=== PATIENT | male | born 1930 | race Caucasian/White ===

== ENCOUNTER 2016-08-25 18:38 | Emergency (ER) | payer OTHER ==
[2016-08-25 19:35] LABS: MANUAL DIFF NEEDED? NO
[2016-08-25 19:38] LABS: BASO% 0.2 % (0.0-0.8); EOS# 0.13 X1000 (0.0-0.7); HEMATOCRIT 46.3 % (42.0-52.0); HEMOGLOBIN 15.4 g/dL (14.0-18.0); IMM GRAN# 0.44 X1000 (0.0-0.04); IMM GRAN% 3.5 % (0.0-0.5); LYMPH# 1.54 X1000 (1.2-3.4); LYMPH% 12.3 % (20.5-51.1); MCH 31.8 PG (27-31); MCHC 33.3 g/dL (33-37); MCV 95.5 FL (81-99); MONO# 1.24 X1000 (0.11-0.59); MONO% 9.9 % (1.7-9.3); MPV 10.2 FL (7.4-10.4); NEUT% 73.1 % (42.2-75.2); PLT 185 X1000 (130-400); RBC 4.85 XMIL (4.7-6.1)
[2016-08-25 19:57] LABS: AGAP 15; ALBUMIN 3.8 g/dL (3.5-5.0); ALKALINE PHOSPHATASE 68 U/L (32-122); BUN 28 mg/dL (8-22); CHLORIDE 99 mmol/L (98-107); CK PROFILE 63 U/L (24-204); COSMO 280; GOT 20 U/L (10-34); GPT 18 U/L (10-44); MAGNESIUM 1.8 mg/dL (1.5-2.7); POTASSIUM 4.2 mmol/L (3.5-5.1); SODIUM 137 mmol/L (136-145); TCO2 23 mmol/L (25-35); TOTAL BILIRUBIN 0.68 mg/dL (0.20-1.00); TOTAL PROTEIN 6.1 g/dL (6.3-8.3)
--- NOTE | 2016-08-25 19:58 | PROVIDER DOCUMENTATION ---
HPI-General Adult - General Source: patient - History of Present Illness -Gen Adult Nature of Presenting Problems: 86 year old M presents to the ED with a cc of fatigue and weakness x2 days. PT states today he was sitting in his recliner and became more weak and dizzy. Location of Pain/Injury: reports: none Pain Radiation: reports: no radiation Quality of Pain: reports: none Severity: reports: mild Onset/Duration: reports: 2 days ago Timing: reports: still present Modifying Factors: improves with: nothing Associated Symptoms: reports: dizziness, fatigue, weakness. denies: chest pain , headaches, sinus congestion/drainage, shortness of breath Similar Symptoms Previously?: No Recently seen or treated by another doctor?: No <Karen Michaels - Last Filed: 08/25/16 19:58> <Miguel Leung - Last Filed: 08/25/16 22:03> - General Chief Complaint: Weakness Stated Complaint: DIZZY Time Seen by Provider: 08/25/16 18:53 Allergies/Adverse Reactions: Patient Allergies Allergy/AdvReac Type Severity Reaction Status Date / Time levofloxacin Allergy Unknown Verified 08/18/15 20:58 Home Medications: Home Medication List Medication Instructions Recorded Confirmed Last Taken Type Carvedilol [Coreg] 6.25 mg PO BID 08/06/14 08/25/16 08/18/15 History Clopidogrel Bisulfate [Plavix] 75 mg PO DIRECTED 08/06/14 08/25/16 08/18/15 History Digoxin 125 mcg PO DAILY 08/06/14 08/25/16 08/18/15 History Furosemide [Lasix] 40 mg PO DAILY 08/06/14 08/25/16 08/18/15 History Isosorbide Mononitrate E.r. [Imdur] 60 mg PO DAILY 08/06/14 08/25/16 08/18/15 History Potassium Chloride E.r. [Klor-Con] 20 meq PO DAILY 08/06/14 08/25/16 10/06/14 History Pravastatin Sodium [Pravachol] 40 mg PO HS 08/06/14 08/25/16 08/17/15 21:00 History Spironolactone 25 mg PO QAM 08/06/14 08/25/16 08/18/15 09:00 History Tamsulosin HCl [Flomax] 0.4 mg PO QAM 08/06/14 08/25/16 08/18/15 09:00 History Tramadol [Ultram] 50 mg PO Q6H PRN PRN 08/06/14 08/25/16 08/18/15 09:00 History Warfarin Sodium 3 mg PO DIRECTED 08/06/14 08/25/16 08/18/15 History Lisinopril [Zestril] 5 mg PO HS 08/18/15 08/25/16 08/17/15 History Pantoprazole [Protonix] 40 mg PO DAILY 08/18/15 08/25/16 08/18/15 History Review of Systems - Adult - REVIEW OF SYSTEMS - ADULT Constitutional: reports: fatique. denies: chills, fever Eyes: reports: no symptoms reported Ears, Nose, Mouth & Throat: reports: no symptoms reported Cardiovascular: denies: chest pain, edema, palpitations Respiratory: denies: cough, shortness of breath Gastrointestinal: denies: abdominal pain, diarrhea, nausea, vomiting Genitourinary: denies: dysuria, hematuria, incontinence Musculoskeletal: reports: muscle weakness. denies: joint pain, muscle aches Integumentary: denies: skin sores/ulcer, skin thickening Neurological: reports: dizziness/vertigo. denies: headache/migraines Psychiatric: reports: no symptoms reported Endocrine: reports: no symptoms reported Hematologic/Lymphatic: reports: no symptoms reported Allergic/Immunologic: reports: no symptoms reported All Other Systems: Reviewed and Negative <Karen Michaels - Last Filed: 08/25/16 19:58> Past History - Adult - PAST MEDICAL HISTORY-ADULT Review of Records: reports: Nursing Assessment Review, Medications Reviewed Major Childhood Illnesses: reports: denies history Cardiovascular: reports: HTN, hyperlipidemia, [place] (1989) Genitourinary: reports: prostate cancer - PRIOR SURGERIES/PROCEDURES Surgical/Procedure History: reports: colonoscopy, CABG, orthopedic (extremity), back/neck - IMMUNIZATION STATUS Childhood Immunizations: See Nurse Assessment Flu Vaccine: See Nurse Assessment - SOCIAL HISTORY Smoking: non-smoker Substance Use: none/never Alcohol Use Frequency: never <Karen Michaels - Last Filed: 08/25/16 19:58> Physical Exam-General - PHYSICAL EXAM-ADULT Initial Vital Signs Reviewed: Yes - CONSTITUTIONAL General Appearance: alert, mild distress. negative: obese, thin, anxious, lethargic, slow to respond, obtunded, combative - EYES Eyes: PERRL/EOMI, pink conjunctivae. negative: conjuctival exudate, scleral icterus, subconjunctival hemorrhage - HEAD, EARS, NOSE, MOUTH & THROAT HENMT: normocephalic/atraumatic, moist mucous membranes, normal ENT inspection. negative: angioedema, frontal tenderness, maxillary tenderness - NECK Neck: non-tender, full range of motion, supple, normal inspection. negative: lymphadenopathy, trachial deviation, thyromegaly - RESPIRATORY Respiratory: lungs clear, normal breath sounds. negative: crackles, rales, rhonchi, stridor, wheezing - CARDIOVASCULAR Cardiovascular: normal peripheral pulses, regular rate, rhythm, no edema, no JVD , no murmur. negative: extra beats, friction rub, irregularly irregular - CHEST (BREASTS) Chest/Breast: deferred - GASTROINTESTINAL (ABDOMEN) Abdominal Exam: normal bowel sounds, non tender, soft. negative: distended, guarding, rigid, rebound, tenderness, hernia, mass - GENITOURINARY Male Genitalia: deferred Rectal Exam: deferred Hemoccult Exam: deferred - LYMPHATIC Lymphatic: no adenopathy. negative: axilla node tender, cervical node tenderness - MUSCULOSKELETAL Back Exam: normal inspection, no CVA tenderness, no vertebral tenderness. negative: ecchymosis, swelling, vertebral tenderness Extremity: normal range of motion, non-tender, normal gait, normal inspection. negative: deformity, erythema, inflammation, swelling, tenderness Peripheral Pulses: radial (R): 2+, radial (L): 2+ - SKIN Integumentary: normal color, normal turgor, warm/dry. negative: cyanosis, diaphoresis, ecchymosis, erythema, jaundice, mottled, pallor, petechiae, purpura , rash, swelling, tenderness - NEUROLOGIC Neurologic: grossly normal, no motor/sensory deficits. negative: aphasia, facial droop, focal weakness, motor weakness, sensory deficit - PSYCHIATRIC Psych/Mental Status: normal mood/affect, normal thought content, normal thought process, oriented x 3. negative: anxious, paranoid, tearful <Miguel Leung - Last Filed: 08/25/16 22:03> Progress - XRAY 1 XRAY Study: Chest Impression: Normal XRAY Interpretation: NAD: Dr. Ca- CHINED[facility] PHILLIP <Karen Michaels - Last Filed: 08/25/16 19:58> - PLAN OF CARE/RESULTS Progress/Plan/Lab Results: Discussed results and plan of care with Dr. Ca. Dr. Ca at bedside for evaluation. Discussed results and plan of care with patient. Patient agrees with plan and verbalizes understanding. Vital Signs Temp Pulse Pulse Pulse Pulse Resp BP 08/25/16 21:44 70 18 157/78 08/25/16 20:19 74 85 71 08/25/16 18:44 97.7 F 69 16 159/88 BP BP BP Pulse Ox 08/25/16 21:44 95 08/25/16 20:19 126/71 125/61 139/77 08/25/16 18:44 97 levofloxacin Allergy (Verified 08/18/15 20:58) Unknown Carvedilol [Coreg] 6.25 mg PO BID 08/06/14 Clopidogrel Bisulfate [Plavix] 75 mg PO DIRECTED 08/06/14 Digoxin 125 mcg PO DAILY 08/06/14 Furosemide [Lasix] 40 mg PO DAILY 08/06/14 Isosorbide Mononitrate E.r. [Imdur] 60 mg PO DAILY 08/06/14 Potassium Chloride E.r. [Klor-Con] 20 meq PO DAILY 08/06/14 Pravastatin Sodium [Pravachol] 40 mg PO HS 08/06/14 Spironolactone 25 mg PO QAM 08/06/14 Tamsulosin HCl [Flomax] 0.4 mg PO QAM 08/06/14 Tramadol [Ultram] 50 mg PO Q6H PRN PRN 08/06/14 Warfarin Sodium 3 mg PO DIRECTED 08/06/14 Lisinopril [Zestril] 5 mg PO HS 08/18/15 Pantoprazole [Protonix] 40 mg PO DAILY 08/18/15 I&O 08/24/16 08/25/16 08/26/16 06:59 06:59 06:59 Output Total 50 Balance -50 Laboratory 08/25/16 08/25/16 08/25/16 20:57 19:27 19:27 WBC RBC Hgb Hct MCV MCH MCHC RDW Std Deviation Plt Count MPV Immature Gran % (Auto) Neut % (Auto) Lymph % (Auto) [place] % (Auto) Eos % (Auto) Baso % (Auto) Immature Gran # (Auto) Neut # (Auto) Lymph # (Auto) [place] # (Auto) Eos # (Auto) Baso # (Auto) PT 59.1 H INR 5.48 PTT (Actin FS) 40.9 H Sodium Potassium Chloride Carbon Dioxide Anion Gap BUN Creatinine Estimated GFR/1.73 m2 BUN/Creatinine Ratio Glucose Calculated Osmolality Calcium Magnesium Total Bilirubin AST ALT Alkaline Phosphatase Creatine Kinase Troponin T < 0.010 Uzz-P-Eljaczmpigl Pept Total Protein Albumin Globulin Albumin/Globulin Ratio Urine Source CLEAN CATCH Urine Color YELLOW Urine Turbidity HAZY Urine pH 5.0 Ur Specific [place] 1.019 Urine Protein NEGATIVE Ur Glucose (Stick) NEGATIVE Ur Ketones (Stick) NEGATIVE Urine Blood MODERATE A Urine Nitrite NEGATIVE Urine Bilirubin NEGATIVE Urobilinogen Dipstick NORMAL Urine Leukocytes NEGATIVE Urine WBC (Auto) <10 Urine RBC (Auto) TNTC A U Epithel Cells (Auto) <10 Urine Bacteria (Auto) NEGATIVE 08/25/16 08/25/16 08/25/16 19:27 19:27 19:27 WBC 12.53 H RBC 4.85 Hgb 15.4 Hct 46.3 MCV 95.5 MCH 31.8 H MCHC 33.3 RDW Std Deviation 14.9 H Plt Count 185 MPV 10.2 Immature Gran % (Auto) 3.5 H Neut % (Auto) 73.1 Lymph % (Auto) 12.3 L [place] % (Auto) 9.9 H Eos % (Auto) 1.0 Baso % (Auto) 0.2 Immature Gran # (Auto) 0.44 H Neut # (Auto) 9.15 H Lymph # (Auto) 1.54 [place] # (Auto) 1.24 H Eos # (Auto) 0.13 Baso # (Auto) 0.03 PT INR PTT (Actin FS) Sodium 137 Potassium 4.2 Chloride 99 Carbon Dioxide 23 L Anion Gap 15 BUN 28 H Creatinine 1.1 Estimated GFR/1.73 m2 > 60 BUN/Creatinine Ratio 25 Glucose 106 H Calculated Osmolality 280 Calcium 9.0 Magnesium 1.8 Total Bilirubin 0.68 AST 20 ALT 18 Alkaline Phosphatase 68 Creatine Kinase 63 Troponin T Afx-W-Edmxkazgfvw Pept 592 H Total Protein 6.1 L Albumin 3.8 Globulin 2.3 Albumin/Globulin Ratio 1.7 Urine Source Urine Color Urine Turbidity Urine pH Ur Specific [place] Urine Protein Ur Glucose (Stick) Ur Ketones (Stick) Urine Blood Urine Nitrite Urine Bilirubin Urobilinogen Dipstick Urine Leukocytes Urine WBC (Auto) Urine RBC (Auto) U Epithel Cells (Auto) Urine Bacteria (Auto) Orders Category Date Time Status Orthostatic Vital Signs NOW Care 08/25/16 19:25 Active Saline Loc NOW Care 08/25/16 19:22 Active CHEST-2 VIEWS [RAD] Stat Exams 08/25/16 19:23 Taken CBC WITH ELECTRONIC DIFF [HEME] Stat Lab 08/25/16 19:27 Completed CK PROFILE [SP CHEM] Stat Lab 08/25/16 19:27 Completed COMPREHENSIVE METABOLIC PANEL [CHEM] Stat Lab 08/25/16 19:27 Completed MAGNESIUM [CHEM] Stat Lab 08/25/16 19:27 Completed PRO B-NATRIURETIC PEPTIDE Stat Lab 08/25/16 19:27 Completed PROTIME WITH INR [COAG] Stat Lab 08/25/16 19:27 Completed PTT [COAG] Stat Lab 08/25/16 19:27 Completed TROPONIN T Stat Lab 08/25/16 19:27 Completed URINALYSIS [URINALYSIS] Stat Lab 08/25/16 20:57 Completed EKG [EKG] Stat Ther 08/25/16 18:47 Ordered Laboratory Tests 08/25/16 08/25/16 08/25/16 19:27 19:27 19:27 WBC 12.53 H RBC 4.85 Hgb 15.4 Hct 46.3 MCV 95.5 MCH 31.8 H MCHC 33.3 RDW Std Deviation 14.9 H Plt Count 185 MPV 10.2 Immature Gran % (Auto) 3.5 H Neut % (Auto) 73.1 Lymph % (Auto) 12.3 L [place] % (Auto) 9.9 H Eos % (Auto) 1.0 Baso % (Auto) 0.2 Immature Gran # (Auto) 0.44 H Neut # (Auto) 9.15 H Lymph # (Auto) 1.54 [place] # (Auto) 1.24 H Eos # (Auto) 0.13 Baso # (Auto) 0.03 PT INR PTT (Actin FS) Sodium 137 Potassium 4.2 Chloride 99 Carbon Dioxide 23 L Anion Gap 15 BUN 28 H Creatinine 1.1 Estimated GFR/1.73 m2 > 60 BUN/Creatinine Ratio 25 Glucose 106 H Calculated Osmolality 280 Calcium 9.0 Magnesium 1.8 Total Bilirubin 0.68 AST 20 ALT 18 Alkaline Phosphatase 68 Creatine Kinase 63 Troponin T Wtd-C-Xnchttcpiuv Pept 592 H Total Protein 6.1 L Albumin 3.8 Globulin 2.3 Albumin/Globulin Ratio 1.7 Urine Source Urine Color Urine Turbidity Urine pH Ur Specific [place] Urine Protein Ur Glucose (Stick) Ur Ketones (Stick) Urine Blood Urine Nitrite Urine Bilirubin Urobilinogen Dipstick Urine Leukocytes Urine WBC (Auto) Urine RBC (Auto) U Epithel Cells (Auto) Urine Bacteria (Auto) 08/25/16 08/25/16 08/25/16 19:27 19:27 20:57 WBC RBC Hgb Hct MCV MCH MCHC RDW Std Deviation Plt Count MPV Immature Gran % (Auto) Neut % (Auto) Lymph % (Auto) [place] % (Auto) Eos % (Auto) Baso % (Auto) Immature Gran # (Auto) Neut # (Auto) Lymph # (Auto) [place] # (Auto) Eos # (Auto) Baso # (Auto) PT 59.1 H INR 5.48 PTT (Actin FS) 40.9 H Sodium Potassium Chloride Carbon Dioxide Anion Gap BUN Creatinine Estimated GFR/1.73 m2 BUN/Creatinine Ratio Glucose Calculated Osmolality Calcium Magnesium Total Bilirubin AST ALT Alkaline Phosphatase Creatine Kinase Troponin T < 0.010 Pgh-Q-Dhyevtmzhls Pept Total Protein Albumin Globulin Albumin/Globulin Ratio Urine Source CLEAN CATCH Urine Color YELLOW Urine Turbidity HAZY Urine pH 5.0 Ur Specific [place] 1.019 Urine Protein NEGATIVE Ur Glucose (Stick) NEGATIVE Ur Ketones (Stick) NEGATIVE Urine Blood MODERATE A Urine Nitrite NEGATIVE Urine Bilirubin NEGATIVE Urobilinogen Dipstick NORMAL Urine Leukocytes NEGATIVE Urine WBC (Auto) <10 Urine RBC (Auto) TNTC A U Epithel Cells (Auto) <10 Urine Bacteria (Auto) NEGATIVE <Miguel Leung - Last Filed: 08/25/16 22:03> Departure <Karen Michaels - Last Filed: 08/25/16 19:58> - Departure Time of Disposition Order: 21:58 Certified Medical Emergency: Emergent <Miguel Leung - Last Filed: 08/25/16 22:03> - Departure DIAGNOSIS: Other fatigue Disposition: HOME 01 Condition: Stable Additional Instructions: Follow up with primary care physician Return to ED for any concerns or worsening of symptoms ED Follow Up Instructions: You have been treated by a care provider in the Emergency Department. These instructions are being provided to you so you can have an understanding of how to care for yourself upon discharge. Upon discharge from the Emergency Department, you are responsible for making arrangements for follow-up care by a physician of your choice. Take all prescribed medications as directed. Return to the Emergency Department immediately for any new or worsening symptoms. You may call the Physician Referral phone number at [phone] to obtain a list of Physicians who are taking new patients. Referrals: Bj Ding MD [Primary Care Provider] - Attestation - Scribe Verification/Attestation Scribe:: Karen Michaels Acting as Scribe for:: Miguel Leung Scribe documention review:: This chart was documented by a scribe and accurately reflects the service the provider performed and the decisions made by the provider. <Karen Michaels - Last Filed: 08/25/16 19:58> - Physician/ IRINEO Attestation Patient care was provided by Advanced Practice Provider:: Yes Advanced Practice Provider:: Miguel Leung Advanced Practice Provider documentation review:: The Mid-level provider documentation, treatment plan and medical decision making was reviewed by the physician who agrees with all treatment and medical decision making by the [facility]. The physician spent face to face time with patient:: Yes <Miguel Leung - Last Filed: 08/25/16 22:03> Physician Attestation - Physician Attestation I, the provider, attest to the following statement:: Miguel Leung Physician documentation Attestation:: This documentation recorded by the scribe accurately reflects the service I personally performed and the decisions made by me. <Karen Michaels - Last Filed: 08/25/16 19:58>
[2016-08-25 20:00] LABS: INR 5.48; PROTIME 59.1 Seconds (9.2-11.7); PTT 40.9 Seconds (22.0-36.0)
[2016-08-25 21:04] LABS: URINE MICRO REVIEW NEEDED? NO; URINE SOURCE CLEAN CATCH
[2016-08-25 21:08] LABS: BILIRUBIN URINE NEGATIVE (NEGATIVE); BLOOD URINE MODERATE (NEGATIVE); COLOR YELLOW; GLUCOSE URINE NEGATIVE (NEGATIVE); LEUKOCYTES URINE NEGATIVE (NEGATIVE); NITRITE URINE NEGATIVE (NEGATIVE); PROTEIN URINE NEGATIVE (NEGATIVE); SP GRAVITY URINE 1.019; TURBIDITY URINE HAZY (CLEAR); UR EPITHELIAL CELLS <10 /HPF (<10); URINE BACTERIA NEGATIVE /HPF; URINE RBC TNTC /HPF (<10); URINE WBC <10 /HPF (<10); UROBILINOGEN URINE NORMAL (NORMAL)
[2016-08-25 21:45] VITALS: BP 157/78
--- NOTE | 2016-08-26 06:03 | EKG Report ---
Test Performed on : 08/25/2016 6:48:22 PM Test Reason : WEAKNESS Blood Pressure : / mmHG Vent. Rate : 069 BPM Atrial Rate : 069 BPM P-R Int : 182 ms QRS Dur : 122 ms QT Int : 388 ms P-R-T Axes : 104 002 004 degrees QTc Int : 415 ms Normal sinus rhythm. 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
--- NOTE | 2016-08-26 08:17 | Diag Imaging Result Document ---
PROCEDURE NAME: CHEST-2 VIEWS - 08/25/2016 TWO VIEWS OF THE CHEST: FINDINGS: There are sternotomy wires. 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 There is cardiomegaly. The inspiration is less optimal than on 08/18/2015, otherwise there has been no significant change. IMPRESSION: Stable chest.
== END 2016-08-25 22:15 | disposition home or self-care (01) ==
LOC: ED 18:38
DX: R53.83 Other fatigue (principal); M62.81 Muscle weakness (generalized); R42 Dizziness and giddiness; I10 Essential (primary) hypertension; E78.5 Hyperlipidemia, unspecified; I25.2 Old myocardial infarction; Z85.46 Personal history of malignant neoplasm of prostate; Z95.1 Presence of aortocoronary bypass graft; Z79.899 Other long term (current) drug therapy; Z79.01 Long term (current) use of anticoagulants; Z79.02 Long term (current) use of antithrombotics/antiplatelets
CPT/HCPCS: 71020; 80053; 81001; 82550; 82948; 83735; 83880; 84484; 85025; 85610; 85730; 93005